=== PATIENT | female | born 1980 | race Caucasian/White ===

== ENCOUNTER → 2017-11-22 | Outpatient (CLI) | payer OTHER ==
[2017-11-22 19:03] LABS: HCG, SERUM QUANTITATIVE 481 MIU/ML
== END ==
LOC: M LAB 17:57
DX: O03.89 Complete or unspecified spontaneous abortion with other complications (principal)
CPT/HCPCS: 84702

== ENCOUNTER → 2018-05-29 | Outpatient (REF) | payer OTHER | LOC: M SFHCCLAY 15:20 | DX: N39.0 Urinary tract infection, site not specified (principal) ==

== ENCOUNTER → 2020-07-14 | Outpatient (REF) | payer OTHER | LOC: M SFHCWAGY 13:36 | PROVIDERS: ATTEND Specialist | DX: Z12.4 Encounter for screening for malignant neoplasm of cervix (principal) ==

== ENCOUNTER → 2020-07-15 | Outpatient (CLI) | payer OTHER ==
--- NOTE | 2020-07-15 15:06 | REP ---
INDICATION: Z12.31 SCREENING MAMMO. Family history breast cancer paternal aunt. COMPARISON: Baseline study. TECHNIQUE: MLO and CC views of both breasts performed with tomosynthesis. FINDINGS: Moderate heterogeneous fibroglandular tissue is seen bilaterally. Laterally in the right breast on the CC view there is asymmetric ill-defined density approximately 1.5 cm in diameter. This is not seen on the MLO view of the right breast. Otherwise I see no mass or clustered microcalcifications bilaterally. The Volpara volumetric breast density pattern is B. IMPRESSION: BIRADS/ACR category 0 incomplete. Heterogeneous moderate fibroglandular tissue bilaterally. Asymmetric density outer right breast only seen on the CC view. This appears somewhat nodular on the tomographic images. Diameter is approximately 1.5 cm. Recommend spot-compression view right CC projection, right mL tomographic sequence. Ultrasound may also be necessary. This patient's Tyrer-zi lifetime breast cancer risk assessment score is 19.6%. This mammogram was interpreted with the aid of an FDA-approved computer-aided detection system. The patient states she had a clinical breast exam in July 2020. The patient letter being requested is M0. RECOMMENDATION: Recommend additional mammographic imaging right breast and possible right breast ultrasound. <Electronically signed by Jose Emery > 07/15/20 [id number]
== END ==
LOC: M WHC 13:44
PROVIDERS: ATTEND Specialist
DX: Z12.31 Encounter for screening mammogram for malignant neoplasm of breast (principal); R92.8 Other abnormal and inconclusive findings on diagnostic imaging of breast

== ENCOUNTER → 2020-08-17 | Outpatient (CLI) | payer SELFPAY | LOC: M LABSMTC 11:11 | PROVIDERS: ATTEND Pediatrics | DX: Z20.828 Contact with and (suspected) exposure to other viral communicable diseases (principal) ==

== ENCOUNTER → 2020-08-20 | Outpatient (CLI) | payer OTHER ==
--- NOTE | 2020-08-20 17:57 | REP ---
INDICATION: ADDITIONAL VIEWS RT BREAST. Screening mammography July 15, 2020 was BI-RADS category 0. Diagnostic imaging was recommended. COMPARISON: July 15, 2020. TECHNIQUE: Magnified focal spot-compression CC MLO and mL views of the right breast were obtained. 3D tomography in the medial-lateral plane was carried out. Targeted right breast sonography was carried out. This mammogram was interpreted with the aid of an FDA-approved computer-aided detection system. FINDINGS: Diagnostic imaging confirms the presence of a well-circumscribed 13 mm nodule in the upper outer quadrant of the right breast. Scattered fibroglandular elements are seen. No other mammographic abnormality is observed. The Volpara volumetric breast density pattern is B. Targeted ultrasound: Sonography in the upper outer quadrant of the right breast demonstrates heterogeneous fibroglandular background echotexture. At 9 o'clock, 5 cm from the nipple, there is a septated but otherwise simple cyst measuring 1.5 x 1.6 x 0.7 cm. This is felt to account for the mammographic opacity. It has a benign appearance by ultrasound. No suspicious sonographic features. IMPRESSION: BIRADS/ACR category 2 benign right breast mammographic and sonographic findings. Benign cysts seen by ultrasound. This patient's Tyrer-Cuzick lifetime breast cancer risk assessment score is 19.6%. RECOMMENDATION: Repeat screening mammography recommended 1 year (for women over 40). The patient letter being requested is M1. <Electronically signed by Eric Goodson > 08/20/20 2018
== END ==
LOC: M WHC 14:22
PROVIDERS: ATTEND Specialist
DX: N63.0 Unspecified lump in unspecified breast (principal); N60.02 Solitary cyst of left breast

== ENCOUNTER → 2020-09-14 | Outpatient (CLI) | payer SELFPAY | LOC: M LABSMTC 12:41 | PROVIDERS: ATTEND Pediatrics | DX: Z20.828 Contact with and (suspected) exposure to other viral communicable diseases (principal) ==

== ENCOUNTER → 2020-10-16 | Outpatient (REF) | payer OTHER ==
[2020-10-16 16:59] LABS: HEMATOCRIT 40.6 % (36.0-47.0); HEMOGLOBIN 12.8 g/dl (12.0-15.5); MEAN CORPUSCULAR HGB CONC 31.5 g/dl (32.0-36.5); MEAN CORPUSCULAR VOLUME 98.3 fl (80.0-96.0); PLATELET COUNT, AUTOMATED 283 10^3/uL (150-450); RED BLOOD COUNT 4.13 10^6/uL (4.00-5.40); WHITE BLOOD COUNT 7.1 10^3/uL (4.0-10.0)
[2020-10-16 17:22] LABS: FREE T4 0.99 NG/DL (0.76-1.46); THYROID STIMULATING HORMONE 1.58 uIU/ML (0.358-3.740)
[2020-10-16 18:03] LABS: HEPATITIS C VIRUS ABY INDEX < 0.0 INDEX (<0.8); HIV 1&2 SCREEN CENTAUR NEGATIVE (NEGATIVE)
[2020-10-16 18:45] LABS: CHLAMYDIA DNA AMPLIFICATION NEGATIVE (NEGATIVE); GC DNA AMPLIFICATION NEGATIVE (NEGATIVE)
== END ==
LOC: M PLALAB 15:37
PROVIDERS: ATTEND Specialist
DX: Z00.00 Encounter for general adult medical examination without abnormal findings (principal)

== ENCOUNTER → 2020-11-02 | Outpatient (REF) | payer OTHER ==
[2020-11-03 13:07] LABS: CYTOMEGALOVIRUS IgG ANTIBODY <0.60 U/mL (0.00-0.59); CYTOMEGALOVIRUS IgM ANTIBODY <30.0 AU/mL (0.0-29.9); HERPES ZOSTER, VARICELLA IgG 505 index (Immune >165); HERPES ZOSTER, VARICELLA IgM <0.91 index (0.00-0.90)
== END ==
LOC: M PLALAB 09:54
PROVIDERS: ATTEND Specialist
DX: Z20.828 Contact with and (suspected) exposure to other viral communicable diseases (principal)

== ENCOUNTER → 2021-11-11 | Outpatient (REF) | payer OTHER | LOC: M PLALAB 14:13 | PROVIDERS: ATTEND Specialist | DX: Z01.419 Encounter for gynecological examination (general) (routine) without abnormal findings (principal) ==

== ENCOUNTER → 2021-11-11 | Outpatient (CLI) | payer OTHER | LOC: M WHC 13:42 | PROVIDERS: ATTEND Specialist | DX: Z12.31 Encounter for screening mammogram for malignant neoplasm of breast (principal); Z80.3 Family history of malignant neoplasm of breast ==